=== PATIENT | female | born 1940 | race Caucasian/White ===

== ENCOUNTER 2016-12-29 07:17 | Day surgery (SDC) | payer OTHER ==
[~2016-12-29] VITALS: Ht 160 cm; Wt 69.8 kg
[~2016-12-29 07:17] MED LIST: ALLOPURINOL100 MG PO; CALCIUM ACETAT667 MG PO; COLCRYS0.6 MG PO; DEXAMETHASONE2 MG PO; DEXAMETHASONE4 MG PO; ESCITALOPRAM OX10 MG PO; LEXAPRO10 MG PO; PACERONE200 MG PO; PERCOCET 5/31 TABLET PO; RENO CAPS SOFTGE1 MG PO; REVLIMID2.5 MG PO; REVLIMID5 MG PO; SYNTHROID112 MCG PO; SYNTHROID125 MCG PO; SYNTHROID150 MCG PO; TYLENOL ARTHRI650 MG PO; VALTREX50 MG/ML PO; WARFARIN SODIUM3 MG PO
[2016-12-29] MEDS ORDERED: COLCHICINE0.6 M1 PO (07:47)
[2016-12-29] MEDS ORDERED: RENVELA800 MG PO (07:47)
[2016-12-29 09:22] LABS: METH RESISTANT S AUREUS PCR NEGATIVE (NEGATIVE); PROBE CHECK PASS; SPECIMEN PROCESSING CONTROL PASS
== END 2016-12-29 10:05 | disposition home or self-care (01) ==
LOC: CATH 07:17
PROVIDERS: Surgery
DX: T82.858A Stenosis of other vascular prosthetic devices, implants and grafts, initial encounter (principal); N18.6 End stage renal disease; Z99.2 Dependence on renal dialysis
CPT/HCPCS: 87641; C1725; C1769; C1894; J1644; J2250; J3010

== ENCOUNTER 2017-10-22 13:22 | Emergency (ER) | payer OTHER ==
[~2017-10-22] VITALS: Ht 160 cm; Wt 51.4 kg
[~2017-10-22 13:22] MED LIST changes: +COLCHICINE0.6 M1 PO; +RENVELA800 MG PO
[2017-10-22 15:01] LABS: HEMATOCRIT 28.1 % (36.0-46.0); HEMOGLOBIN 9.1 G/DL (11.9-15.5); MCH 29.7 PG (29.0-34.0); MCHC 32.4 G/DL (30.0-36.0); MCV 91.8 FL (83-99); PLATELET COUNT 291 K/uL (156-360); RBC DIS.WIDTH-SD 60.4 % (39-53); RED BLOOD COUNT 3.06 M/uL (3.80-5.20)
[2017-10-22 15:19] LABS: CHLORIDE 100 mEq/L (99-109); POTASSIUM 4.4 mEq/L (3.7-5.4); SODIUM 134 mEq/L (136-147)
[2017-10-22 15:21] LABS: GLUCOSE 92 mg/dL (70-99)
[2017-10-22 15:24] LABS: CREATININE 4.8 mg/dL (0.6-1.3); GFR ESTIMATE (CALCULATED) 9 mL/min/
[2017-10-22 15:25] LABS: UREA NITROGEN (BUN) 43 mg/dL (9-23)
[2017-10-22 15:27] LABS: TROP-I INTERPRETATION NEGATIVE; TROPONIN-I < 0.01 ng/mL (0.0-0.30)
[2017-10-22 16:07] LABS: APPEARANCE TURBID ((CLEAR)); BILIRUBIN NEGATIVE; BLOOD SMALL; COLOR AMBER ((YELLOW)); GLUCOSE (STRIP) NEGATIVE; KETONES NEGATIVE; LEUKOCYTES MODERATE; NITRITE NEGATIVE; PROTEIN (STRIP) 100; UROBILINOGEN 0.2 MG/DL (0.2-1.0)
[2017-10-22 16:24] LABS: WHITE BLOOD CELLS TNTC /HPF (0-5)
[2017-10-22] MEDS ORDERED: CEFDINIR300 MG PO (17:14)
[2017-10-22 18:00] VITALS: BP 160/57
== END 2017-10-22 18:09 | disposition home or self-care (01) ==
LOC: EME 13:22
PROVIDERS: Physician Assistant
DX: N39.0 Urinary tract infection, site not specified (principal); I12.9 Hypertensive chronic kidney disease with stage 1 through stage 4 chronic kidney disease, or unspecified chronic kidney disease; N18.9 Chronic kidney disease, unspecified; Z99.2 Dependence on renal dialysis; E03.9 Hypothyroidism, unspecified; F32.9 Major depressive disorder, single episode, unspecified; Z93.3 Colostomy status; Z88.2 Allergy status to sulfonamides; Z88.8 Allergy status to other drugs, medicaments and biological substances
CPT/HCPCS: 71046; 80048; 81003; 84484; 85027; 93005; 99281; 99285

== ENCOUNTER 2017-10-27 10:04 | Day surgery (SDC) | payer OTHER ==
[~2017-10-27] VITALS: Ht 160 cm; Wt 64.0 kg
[~2017-10-27 10:04] MED LIST changes: +CEFDINIR300 MG PO
[2017-10-27] MEDS ORDERED: CALCIUM ACETAT667 MG PO (10:25)
[2017-10-27] MEDS ORDERED: HYDRALAZINE HCL25 MG PO (10:27)
[2017-10-27] MEDS ORDERED: SPIRONOLACTONE25 MG PO (10:28)
[2017-10-27] MEDS ORDERED: ASCORBIC ACID500 M3 PO (10:28)
[2017-10-27] MEDS ORDERED: ELIQUIS2.5 MG PO (10:29)
[2017-10-27] MEDS ORDERED: VITAMIN D31000 UNI2 PO (10:29)
== END 2017-10-27 12:13 | disposition home or self-care (01) ==
LOC: CATH 10:04
DX: T82.858A Stenosis of other vascular prosthetic devices, implants and grafts, initial encounter (principal); Y83.2 Surgical operation with anastomosis, bypass or graft as the cause of abnormal reaction of the patient, or of later complication, without mention of misadventure at the time of the procedure; N18.6 End stage renal disease; Z99.2 Dependence on renal dialysis; Z85.820 Personal history of malignant melanoma of skin
CPT/HCPCS: 87641; C1725; C1769; C1894; J1644; J2250; J3010

== ENCOUNTER 2017-11-19 05:39 | Day surgery (SDC) | payer OTHER ==
[~2017-11-19] VITALS: Ht 162.6 cm; Wt 64.0 kg
[~2017-11-19 05:39] MED LIST changes: +ASCORBIC ACID500 M3 PO; +ELIQUIS2.5 MG PO; +HYDRALAZINE HCL25 MG PO; +SPIRONOLACTONE25 MG PO; +VITAMIN D31000 UNI2 PO
[2017-11-19] MEDS ORDERED: METOPROLOL SUCC25 MG PO (06:26)
[2017-11-19 06:29] LABS: HEMATOCRIT 31.1 % (36.0-46.0); HEMOGLOBIN 10.1 G/DL (11.9-15.5); MCH 29.6 PG (29.0-34.0); MCHC 32.5 G/DL (30.0-36.0); MCV 91.2 FL (83-99); NRBC (%) 0.2 /100 WBC (0-0); PLATELET COUNT 222 K/uL (156-360); RBC DIS.WIDTH-CV 17.8 % (11.8-14.6); RBC DIS.WIDTH-SD 59.2 % (39-53); RED BLOOD COUNT 3.41 M/uL (3.80-5.20)
[2017-11-19 06:56] LABS: CHLORIDE 95 MEQ/L (99-109); GFR ESTIMATE (CALCULATED) 11 mL/min/; GLUCOSE 148 mg/dL (70-99); POTASSIUM 3.6 MEQ/L (3.7-5.4); SODIUM 130 MEQ/L (136-147); UREA NITROGEN (BUN) 27 mg/dL (9-23)
[2017-11-19 06:59] VITALS: BP 159/68
[2017-11-19 10:40] VITALS: BP 99/52
[2017-11-19 11:25] VITALS: BP 105/58
== END 2017-11-19 11:25 | disposition home or self-care (01) ==
LOC: 2SOUTH 05:39 → SDC 05:39 → 2SOUTH 09:20 → SDC 11:25 → 2SOUTH 11:58 → EDSTATUS 12:36 → 2SOUTH 13:06
PROVIDERS: Surgery
DX: C79.82 Secondary malignant neoplasm of genital organs (principal); C18.9 Malignant neoplasm of colon, unspecified; Z93.3 Colostomy status; Z87.440 Personal history of urinary (tract) infections; I13.2 Hypertensive heart and chronic kidney disease with heart failure and with stage 5 chronic kidney disease, or end stage renal disease; N18.6 End stage renal disease; I50.9 Heart failure, unspecified; Z99.2 Dependence on renal dialysis; I25.10 Atherosclerotic heart disease of native coronary artery without angina pectoris; I48.91 Unspecified atrial fibrillation; F32.9 Major depressive disorder, single episode, unspecified; E06.3 Autoimmune thyroiditis; K57.30 Diverticulosis of large intestine without perforation or abscess without bleeding; M19.90 Unspecified osteoarthritis, unspecified site; Z79.01 Long term (current) use of anticoagulants; Z88.2 Allergy status to sulfonamides; Z91.040 Latex allergy status; Z86.72 Personal history of thrombophlebitis; I83.90 Asymptomatic varicose veins of unspecified lower extremity
CPT/HCPCS: 80048; 85027; 87641; 88305; 88341 TC; 88342 TC; 94002; C1758; J1100; J1335; J2001; J2405; J2710; J3475; J7050; J7643

== ENCOUNTER 2017-11-21 10:51 | Inpatient (IN) | payer OTHER ==
[~2017-11-21] VITALS: Ht 162.6 cm; Wt 68.0 kg
[~2017-11-21 10:51] MED LIST changes: +METOPROLOL SUCC25 MG PO
[2017-11-21 12:25] LABS: BASOPHIL (%) 0.2 % (0-1); EOSINOPHIL (%) 0.2 % (0-5); HEMATOCRIT 31.2 % (36.0-46.0); HEMOGLOBIN 10.3 G/DL (11.9-15.5); IMMATURE GRANULOCYTE (%) 0.5 % (0.0-0.7); LYMPHOCYTE COUNT 1.1 K/uL (1.0-2.8); MCH 29.9 PG (29.0-34.0); MCV 90.4 FL (83-99); MONOCYTE COUNT 0.8 K/uL (0-0.8); NEUTROPHIL (%) 87.1 % (45-76); NRBC (%) 0.2 /100 WBC (0-0); PLATELET COUNT 249 K/uL (156-360); RBC DIS.WIDTH-CV 17.5 % (11.8-14.6); RBC DIS.WIDTH-SD 57.1 % (39-53); RED BLOOD COUNT 3.45 M/uL (3.80-5.20); WHITE BLOOD COUNT 16.1 K/uL (4.1-10.2)
[2017-11-21 12:32] LABS: INTER. NORMALIZED RATIO 1.4
[2017-11-21 12:34] LABS: PTT 33.1 SEC (25-37)
[2017-11-21 12:41] LABS: CHLORIDE 99 mEq/L (99-109); SODIUM 133 mEq/L (136-147)
[2017-11-21 12:43] LABS: GLUCOSE 77 mg/dL (70-99)
[2017-11-21 12:46] LABS: GFR ESTIMATE (CALCULATED) 9 mL/min/
[2017-11-21 12:47] LABS: UREA NITROGEN (BUN) 50 mg/dL (9-23)
[2017-11-21 12:50] LABS: TROP-I INTERPRETATION NEGATIVE; TROPONIN-I 0.02 ng/mL (0.0-0.30)
[2017-11-21] MEDS ORDERED: APRESOLINE25 MG PO (14:39)
[2017-11-21] MEDS ORDERED: ZOLOFT25 MG PO (14:46)
[2017-11-21] MEDS ORDERED: BIOTIN1000 MCG PO (14:50)
[2017-11-21 17:30] VITALS: BP 165/73
[2017-11-21 18:19] LABS: THYROTROPIN (TSH) 2.1 MIU/L (0.4-5.5)
[2017-11-21 18:47] LABS: TROP-I INTERPRETATION NEGATIVE; TROPONIN-I 0.02 ng/mL (0.0-0.30)
[2017-11-22 00:11] VITALS: BP 144/63
[2017-11-22 00:52] LABS: TROP-I INTERPRETATION NEGATIVE; TROPONIN-I 0.02 ng/mL (0.0-0.30)
[2017-11-22 04:26] VITALS: BP 139/50
[2017-11-22 06:55] VITALS: BP 131/62
[2017-11-22 06:57] LABS: HEMATOCRIT 27.7 % (36.0-46.0); HEMOGLOBIN 8.8 G/DL (11.9-15.5); MCH 29.1 PG (29.0-34.0); MCHC 31.8 G/DL (30.0-36.0); MCV 91.7 FL (83-99); NRBC (%) 0.2 /100 WBC (0-0); PLATELET COUNT 226 K/uL (156-360); RBC DIS.WIDTH-CV 17.4 % (11.8-14.6); RBC DIS.WIDTH-SD 57.1 % (39-53); RED BLOOD COUNT 3.02 M/uL (3.80-5.20)
[2017-11-22 07:22] LABS: CHLORIDE 101 MEQ/L (99-109); GLUCOSE 74 mg/dL (70-99); POTASSIUM 4.3 MEQ/L (3.7-5.4); SODIUM 135 MEQ/L (136-147); UREA NITROGEN (BUN) 52 mg/dL (9-23)
[2017-11-22 07:31] LABS: CREATININE 5.9 MG/DL (0.6-1.3); GFR ESTIMATE (CALCULATED) 7 mL/min/
[2017-11-22 11:00] VITALS: BP 100/50
[2017-11-22 20:59] VITALS: BP 132/60
[2017-11-22 22:12] VITALS: BP 148/65
[2017-11-23] VITALS (7 sets, daily range): BP systolic 109–144; BP diastolic 46–76
[2017-11-23 07:26] LABS: BASOPHIL (%) 0.3 % (0-1); BASOPHIL COUNT 0.1 K/uL (0-0.1); EOSINOPHIL (%) 0.3 % (0-5); EOSINOPHIL COUNT 0.1 K/uL (0-0.3); HEMOGLOBIN 8.9 G/DL (11.9-15.5); IMMATURE GRANULOCYTE (%) 0.6 % (0.0-0.7); LYMPHOCYTE (%) 10.9 % (15-42); LYMPHOCYTE COUNT 1.6 K/uL (1.0-2.8); MCH 28.7 PG (29.0-34.0); MCHC 30.7 G/DL (30.0-36.0); MCV 93.5 FL (83-99); MONOCYTE (%) 9.3 % (3-12); MONOCYTE COUNT 1.4 K/uL (0-0.8); NEUTROPHIL (%) 78.6 % (45-76); NEUTROPHIL COUNT 11.6 K/uL (1.8-6.4); NRBC (%) 0.2 /100 WBC (0-0); PLATELET COUNT 193 K/uL (156-360); RBC DIS.WIDTH-CV 17.8 % (11.8-14.6); RBC DIS.WIDTH-SD 57.8 % (39-53); WHITE BLOOD COUNT 14.8 K/uL (4.1-10.2)
[2017-11-23 08:13] LABS: ALBUMIN 1.8 G/DL (3.2-4.8); ALKALINE PHOSPHATASE 609 IU/L (3-129); ALT (GPT) 18 IU/L (3-49); AST (GOT) 32 IU/L (2-34); CHLORIDE 98 MEQ/L (99-109); GFR ESTIMATE (CALCULATED) 11 mL/min/; GLUCOSE 76 mg/dL (70-99); POTASSIUM 3.9 MEQ/L (3.7-5.4); SODIUM 134 MEQ/L (136-147); TOTAL BILIRUBIN 0.5 MG/DL (0.0-1.0); TOTAL PROTEIN 5.2 G/DL (6.4-8.3); UREA NITROGEN (BUN) 26 mg/dL (9-23)
[2017-11-24 06:54] LABS: BASOPHIL (%) 0.3 % (0-1); EOSINOPHIL (%) 0.6 % (0-5); EOSINOPHIL COUNT 0.1 K/uL (0-0.3); HEMATOCRIT 29.6 % (36.0-46.0); HEMOGLOBIN 9.5 G/DL (11.9-15.5); IMMATURE GRANULOCYTE (%) 0.8 % (0.0-0.7); LYMPHOCYTE (%) 8.5 % (15-42); LYMPHOCYTE COUNT 1.3 K/uL (1.0-2.8); MCH 29.9 PG (29.0-34.0); MCHC 32.1 G/DL (30.0-36.0); MCV 93.1 FL (83-99); MONOCYTE (%) 9.6 % (3-12); MONOCYTE COUNT 1.5 K/uL (0-0.8); NEUTROPHIL (%) 80.2 % (45-76); NEUTROPHIL COUNT 12.5 K/uL (1.8-6.4); NRBC (%) 0.1 /100 WBC (0-0); PLATELET COUNT 200 K/uL (156-360); RBC DIS.WIDTH-CV 18.3 % (11.8-14.6); RED BLOOD COUNT 3.18 M/uL (3.80-5.20); WHITE BLOOD COUNT 15.6 K/uL (4.1-10.2)
[2017-11-24 07:17] LABS: CHLORIDE 97 MEQ/L (99-109); GFR ESTIMATE (CALCULATED) 9 mL/min/; GLUCOSE 86 mg/dL (70-99); SODIUM 130 MEQ/L (136-147); UREA NITROGEN (BUN) 35 mg/dL (9-23)
[2017-11-24 07:30] VITALS: BP 114/56
[2017-11-24 16:13] VITALS: BP 98/44
[2017-11-24 23:41] VITALS: BP 100/42
[2017-11-25 07:22] VITALS: BP 131/64
[2017-11-25] MEDS ORDERED: CEFDINIR300 MG PO (12:17)
[2017-11-25] MEDS ORDERED: PANTOPRAZOLE SO40 MG PO (12:17)
[2017-11-25] MEDS ORDERED: TRAMADOL HCL50 MG PO (12:17)
[2017-11-25 17:01] VITALS: BP 137/63
== END 2017-11-25 17:08 | disposition home health service (06) | DRG 374 ==
LOC: EME 10:51 → 5EAST 11:59 → EDOF 11:59 → ENRESERV 12:14 → 5EAST 17:27
PROVIDERS: Emergency Medicine; Hospitalist; Internal Medicine; Internal Medicine Nephrology
PROC: 5A1D70Z Performance of Urinary Filtration, Intermittent, Less than 6 Hours Per Day (ICD-10-PCS; principal; 2017-11-22)
DX: C19 Malignant neoplasm of rectosigmoid junction (principal); C79.89 Secondary malignant neoplasm of other specified sites; J18.9 Pneumonia, unspecified organism; I13.2 Hypertensive heart and chronic kidney disease with heart failure and with stage 5 chronic kidney disease, or end stage renal disease; I50.9 Heart failure, unspecified; N18.6 End stage renal disease; C78.7 Secondary malignant neoplasm of liver and intrahepatic bile duct; N13.30 Unspecified hydronephrosis; C90.00 Multiple myeloma not having achieved remission; I48.0 Paroxysmal atrial fibrillation; J40 Bronchitis, not specified as acute or chronic; D63.0 Anemia in neoplastic disease; E03.9 Hypothyroidism, unspecified; K63.4 Enteroptosis; F32.9 Major depressive disorder, single episode, unspecified; Z86.718 Personal history of other venous thrombosis and embolism; Z87.440 Personal history of urinary (tract) infections; Z93.3 Colostomy status; Z99.2 Dependence on renal dialysis; Z79.01 Long term (current) use of anticoagulants
CPT/HCPCS: 71045; 74177; 80048; 80053; 81003; 83605; 84100; 84443; 84484; 85025; 85027; 85610; 85730; 87040; 87070; 87205; 87641; 88305; 88341 TC; 88342 TC; 93005; 93971; 94002; 97530 GP; 99281; 99283; A6214; C1758; C9113; J0696; J1100; J1170; J1335; J2001; J2405; J2710; J3475; J7050; J7643

== ENCOUNTER 2017-12-13 13:48 | Day surgery (SDC) | payer OTHER ==
[~2017-12-13 13:48] MED LIST changes: +APRESOLINE25 MG PO; +BIOTIN1000 MCG PO; +PANTOPRAZOLE SO40 MG PO; +TRAMADOL HCL50 MG PO; +ZOLOFT25 MG PO
== END 2017-12-13 18:40 | disposition home or self-care (01) ==
LOC: CATH 13:48
PROC: 057Y3ZZ Dilation of Upper Vein, Percutaneous Approach (ICD-10-PCS; principal; 2017-12-13)
DX: T82.858A Stenosis of other vascular prosthetic devices, implants and grafts, initial encounter (principal); N18.6 End stage renal disease; Z99.2 Dependence on renal dialysis; E07.9 Disorder of thyroid, unspecified; Z87.19 Personal history of other diseases of the digestive system; Z85.820 Personal history of malignant melanoma of skin; Z82.49 Family history of ischemic heart disease and other diseases of the circulatory system; Z79.01 Long term (current) use of anticoagulants; Z88.2 Allergy status to sulfonamides; Z91.040 Latex allergy status; Y83.2 Surgical operation with anastomosis, bypass or graft as the cause of abnormal reaction of the patient, or of later complication, without mention of misadventure at the time of the procedure
CPT/HCPCS: 87641; C1725; C1769; C1894; J1644